=== PATIENT | female | born 1985 | race Caucasian/White ===

== ENCOUNTER 2020-10-28 15:44 | Inpatient (IN) | payer BC ==
[2020-10-28 16:19] VITALS: BMI 48.5
[2020-10-28] MEDS ORDERED: Ondansetron PF 4 MG/2 ML Vial IVP PRN (16:38)
[2020-10-28] MEDS ORDERED: hydrALAZINE 20 MG/ML VIAL SLOW IVP PRN (16:38)
[2020-10-28] MEDS ORDERED: Calcium Gluc 4.6 MEQ/10 ML (100 MG/ML) SLOW IVP PRN (16:38)
[2020-10-28] MEDS ORDERED: Butorphanol Tartrate 1 MG/ML VIAL SLOW IVP PRN (16:38)
[2020-10-28] MEDS ORDERED: Magnesium Sulfate 20 GM/WATER 500 ML BAG IVPB SCH (16:45)
[2020-10-28 17:39] LABS: Hemoglobin 12.9 g/dL (12.0-16.0); Mean Corpuscular HGB CONC 32.9 g/dL (32.0-36.0); Mean Corpuscular Hemoglobin 30.4 pg (27.0-31.0); Mean Corpuscular Volume 92.5 fL (78.0-98.0); Platelet Count 277 thou/uL (130-400); RBC Distribution Width 12.4 % (11.5-14.5); Red Blood Cell (RBC) Count 4.23 mill/uL (4.20-5.40); White Blood Cell (WBC) Count 12.5 thou/uL (4.8-10.8)
[2020-10-28 18:19] LABS: Syphilis Antibody Nonreactive (Nonreactive); Syphilis Antibody Index 0.04 S/CO (<1.00 Non-Reactive)
[2020-10-28 18:20] LABS: Hep B Surf Ag Non-Reactive S/CO (NonReactive)
[2020-10-28] MEDS: Fioricet 325/50/40 mg Tablet PO PRN (18:24)
[2020-10-28 18:25] LABS: ALT (SGPT) 12 U/L (8-55); AST (SGOT) 15 U/L (5-34); Albumin 3.3 g/dL (3.5-5.0); Alkaline Phosphatase 114 U/L (40-110); Anion Gap 14 mmol/L (10-20); BUN (Urea Nitrogen) 4 mg/dL (7.0-18.7); Bilirubin, Total 0.3 mg/dL (0.2-1.2); Calc. Creatinine Clearance 269 mL/min (70-130); Calcium 8.9 mg/dL (7.8-10.44); Carbon Dioxide 25 mmol/L (22-29); Chloride 103 mmol/L (98-107); Globulin 2.7 g/dL (2.4-3.5); Glucose 75 mg/dL (70-105); Potassium 3.5 mmol/L (3.5-5.1); Sodium 138 mmol/L (136-145)
[2020-10-28] MEDS: NIFEdipine XL 30 MG TAB PO SCH (20:44)
[2020-10-28] MEDS: Betamet Acet/Betamet Na Ph 30 MG/5 ML VIAL IM SCH (20:44)
--- NOTE | 2020-10-28 20:59 | ULT ---
LIMITED OB ULTRASOUND: 10/28/20 PROVIDED CLINICAL HISTORY: Evaluate weight, presentation and amniotic fluid index. FINDINGS: A single viable intrauterine gestation is documented in vertex presentation with heart rate of 145 be ats per minute. The placenta is anteriorly located, without evidence for previa. Amniotic fluid index is 15.9. Estimated gestational age based on today's examination is 33 weeks, 6 days. Estimated feta l weight is 2164 +/- 320 grams. Cervical length was not assessed. IMPRESSION: Single live intrauterine gestation as described. POS: MADDI
[2020-10-29] MEDS: Fioricet 325/50/40 mg Tablet PO PRN ×3 (04:09→17:49)
[2020-10-29 04:20] LABS: SARS-CoV-2 PCR by NAA Not Detected (NotDetected)
[2020-10-29] MEDS: Magnesium Sulfate 20 gm/500 ml 20 GM/500 ML BAG IVPB SCH ×3 (04:53→23:16)
[2020-10-29] MEDS ORDERED: hydrALAZINE 20 MG/ML VIAL SLOW IVP PRN (07:08)
--- NOTE | 2020-10-29 07:31 | PRG ---
DATE OF SERVICE: 10/29/2020 PRIMARY OB: Dr. Angela Power. HISTORY OF PRESENT ILLNESS: The patient is a 35-year-old female admitted for gestational hypertension, severe in nature, on magnesium for seizure prophylaxis, Procardia XL 30 mg at bedtime for blood pressure control, and hydralazine p.r.n. for blood pressure control, and steroids for lung maturity. The patient slept fairly well overnight. She did require another dose of Fioricet and reports her headache has diminished since arrival, but is still present. Blood pressures since arrival have ranged from 130s to the 160s. She did require additional treatment with hydralazine overnight in addition to her Procardia XL. OBJECTIVE: VITAL SIGNS: Most current blood pressure is 161/89, heart rate of 100, temperature 98.4. Her blood pressures have ranged primarily in the 140s and 150s systolic. GENERAL: She appears to be in no acute distress. She is resting comfortably. HEART: Has regular rate and rhythm. LUNGS: Clear to auscultation bilaterally. EXTREMITIES: Difficult to elicit DTRs. heart tracing shows the fetus with a baseline in the one teens with moderate long-term variability, positive 15 x 15 accelerations. No contractions on the tocometer. Urine output has been averaging about 150 to 200 mL an hour. ASSESSMENT AND PLAN: The patient is a 35-year-old, G2, P0 female with an intrauterine at 33 weeks and 2 days with severe gestational hypertension on Procardia XL 30 mg at bedtime. She needed additional dose of hydralazine last night for blood pressure control and appears it needed again this morning as she has just spiked another severe range pressure. We will continue current course of management. Dr. Dhillon is the oncoming physician, who will continue her care. Anticipate delivery in the next week. Job ID: [id number]
[2020-10-29] MEDS: Lactated Ringer's 1,000 ML IV SCH ×2 (08:22→21:44)
--- NOTE | 2020-10-29 08:35 | HP ---
PRIMARY OB: Dr. Angela Power. CHIEF COMPLAINT: Elevated blood pressure and headache. HISTORY OF PRESENT ILLNESS: The patient is a 35-year-old G2, P0 female with an intrauterine at 33 weeks and 2 days, presenting to Labor and Delivery with elevated pressures at home in the 140s systolic. The patient has been asked for the last few weeks to check her blood pressures twice a day due to an elevation in the clinic. The patient reports that she has also had a headache for the last day or two. For the last 24 hours that is bandlike and she describes as a tension headache. She denies shortness of breath. She denies abdominal pain. She denies fever, chest pain, shortness of breath, nausea, vomiting, diarrhea, constipation, hip problems, knee problems, muscle weakness. She denies any new rashes. She denies vaginal bleeding, leakage of fluid, urinary urgency or frequency. PAST MEDICAL HISTORY: Chronic UTI, on suppression. PAST SURGICAL HISTORY: She has had a tonsillectomy. SOCIAL HISTORY: Denies drug, alcohol or tobacco use during the . ALLERGIES: MACROBID AND PENICILLIN. MEDICATIONS: Keflex at bedtime. OB LABS: Blood type is A positive. Antibody screen is negative. Hepatitis B surface antigen is nonreactive. HIV is negative. GC chlamydia is negative. She is rubella immune. HCV is negative. Cystic fibrosis is negative. Diabetes screen is 93. REVIEW OF SYSTEMS: Per HPI. PHYSICAL EXAMINATION: VITAL SIGNS: Blood pressure on arrival 160/94, heart rate of 90, respiratory rate of 18, saturating 98% on room air, temperature 98.5. GENERAL: She appears to be in no acute distress. She is alert, oriented, cooperative, and pleasant to interact with. HEAD: Normocephalic, atraumatic. LUNGS: Clear to auscultation bilaterally. HEART: Has regular rate and rhythm. ABDOMEN: Gravid and soft. She does report tenderness in the right upper quadrant with an equivocal Guillermo's sign. EXTREMITIES: Nontender. She does have some edema that is symmetrical. Her DTRs are difficult to elicit. CERVIX: heart tracing shows the fetus with a baseline in the 140s with moderate long-term variability, positive 15/15 accelerations, no contractions on the tocometer. LABORATORY DATA: White count is 12.5, hemoglobin is 12.9, hematocrit 39.1, RDW 12.4 and platelets of 277,000. Sodium of 138, potassium of 3.5, creatinine 0.58, glucose is 75, AST of 15, ALT of 12, albumin 3.3. Urine protein dip is negative. RPR is nonreactive. Hepatitis B surface antigen nonreactive. SARS-CoV2 is nondetected. Blood type is A positive. Antibody screen is negative. IMAGING: ultrasound shows a fetus in vertex presentation with a weight of 2164 g. JOHN of 15. Placenta is anterior. Over the course of her stay, patient has had intermittent severe range pressures. Blood pressures primarily are in the 140s and 150s with occasional 160, highest 164 systolic. ASSESSMENT AND PLAN: The patient is a 35-year-old, 2, para 0 female with an intrauterine at 33 weeks and a day, who is presenting with signs of gestational hypertension with severe features as evidenced by headache and severe range blood pressures. The patient has been given a dose of Fioricet with some relief, but not resolution. Given the severe pressures, we have instituted magnesium for seizure prophylaxis. I have also started her on Procardia XL 30 mg and steroids for lung maturity. Fetus is in vertex presentation. CoV2 is negative. We will continue magnesium through the steroid course and treat blood pressures as necessary. Job ID: [id number]
[2020-10-29] MEDS: Betamet Acet/Betamet Na Ph 30 MG/5 ML VIAL IM SCH (21:04)
[2020-10-29] MEDS: NIFEdipine XL 30 MG TAB PO SCH (21:04)
--- NOTE | 2020-10-30 07:46 | PDOC.BPN ---
- Brief Progress Note Encounter Date: 10/30/20 Encounter Time: 07:42 S: Continues to have a headache, although better after having coffee yesterday. She has not required a fioricet overnight. Otherwise without complaints. Denies VB, LOF, ctx, RUQ pain, vision changes, or decreased FM. O: BPs: 130s-150s with occasional 160s/70s-90s Gen - AAO, NAD Chest - nonlabored Abd - obese, soft, gravid, NTTP A/P: 35 y/o at 33w3d with GHTN and severe range BPs. Labs unremarkable, urine protein negative. On Procardia XL 30mg daily. MgSO4 was started yesterday. Now s/p betamethasone x 2. Will discuss with oncoming OBH and/or Dr. Power. May consider delivery if CORTES cannot be resolved now that she has received 2 doses of steroids.
[2020-10-30 10:07] LABS: Creatinine, Urine Less than 20.00 mg/dL (47-110); Protein, Urine Random Quant Less than 10 mg/dL (1-14)
[2020-10-30] MEDS: NIFEdipine XL 30 MG TAB PO SCH (21:43)
[2020-10-31] MEDS: Fioricet 325/50/40 mg Tablet PO PRN (05:46)
--- NOTE | 2020-10-31 06:54 | PDOC.EVN ---
Event Note - Event Note Event Note: S:Had headache this morning. Given fiorcet and feeling better. Baby is active. O:155/90....range 130-140/80-90..Procardia 30 mg xl started 10/30..PIH labs normal 10/28 Completed steroids. ABD: soft/non tender. A/P:35 y/o A1 at 33-34 weeks with gestational hypertension. Labs normal. Procardia initiated. Has h/o migraine with headache this AM that has improved with fiorcet. Continue to observe in house. If blood pressures persist in severe range or if symptoms continue, induce. Rechecheck labs today..
[2020-10-31 07:58] LABS: Hemoglobin 11.8 g/dL (12.0-16.0); Mean Corpuscular HGB CONC 33.9 g/dL (32.0-36.0); Mean Corpuscular Hemoglobin 32.2 pg (27.0-31.0); Mean Corpuscular Volume 94.8 fL (78.0-98.0); Mean Platelet Volume 6.7 fL (7.4-10.4); Platelet Count 256 thou/uL (130-400); RBC Distribution Width 12.4 % (11.5-14.5); Red Blood Cell (RBC) Count 3.66 mill/uL (4.20-5.40); White Blood Cell (WBC) Count 12.3 thou/uL (4.8-10.8)
[2020-10-31 08:23] LABS: ALT (SGPT) 13 U/L (8-55); AST (SGOT) 13 U/L (5-34); Alkaline Phosphatase 97 U/L (40-110); Anion Gap 12 mmol/L (10-20); BUN (Urea Nitrogen) 4 mg/dL (7.0-18.7); Bilirubin, Total 0.2 mg/dL (0.2-1.2); Calc. Creatinine Clearance 284 mL/min (70-130); Calcium 8.2 mg/dL (7.8-10.44); Carbon Dioxide 26 mmol/L (22-29); Chloride 104 mmol/L (98-107); Globulin 2.7 g/dL (2.4-3.5); Glucose 88 mg/dL (70-105); Protein, Total 5.7 g/dL (6.0-8.3); Sodium 139 mmol/L (136-145)
[2020-10-31] MEDS: NIFEdipine XL 30 MG TAB PO SCH (20:49)
[2020-10-31 23:53] VITALS: TEMP 98
[2020-11-01] MEDS: Fioricet 325/50/40 mg Tablet PO PRN (05:00)
[2020-11-01 07:58] VITALS: BP 111/75
--- NOTE | 2020-11-01 09:14 | DIS ---
DATE OF ADMISSION: 10/28/2020 DATE OF DISCHARGE: 11/01/2020 DIAGNOSES: 1. 33 or 34 weeks gestational hypertension. 2. Advanced maternal age. SUMMARY OF HOSPITAL COURSE: Ms. Kline is a G1, P0, who is at 33 or 34 weeks, who has had some mild gestational hypertension issues started several weeks ago. She has taken a baby aspirin 81 mg daily and been checking her blood pressures routinely daily. She was noted to have pressures in 140s systolic at home with a continued bandlike headache that caused her to present to the emergency room in Labor and Delivery for evaluation. On exam, initially, she had elevated blood pressure at 160/94, which had persisted. She underwent laboratory assessment for PIH and all her platelets, creatinine, and liver function testing were normal. She did receive some hydralazine for hypertension which improved, but she was also placed on IV magnesium. She was evaluated and observed in Labor and Delivery over 24 hours and did receive 2 courses of betamethasone for lung maturation. Essentially, her blood pressures improved and were less than severe criteria. Protein in the urine was negligible. heart rate tracing on continuous monitoring was all reassuring. An ultrasound that was performed on 10/28 showing her to have an estimated gestational age of 33 weeks six days with weight 2164 with no obvious abnormalities noted and normal amniotic fluid index of 15.9. Since she stabilized with her blood pressures being in the nonsevere range, she was transferred to the floor after she was started on Procardia 30 mg XL daily. She has been observed now approximately 2 days from this transfer from and D. Overall, her blood pressures have remained normotensive with the Procardia ranging anywhere from normal diastolics of 75 to 83. She did have an occasional morning headache that has resolved with Fioricet. She reports an active fetus and no current PIH symptoms. Blood pressure currently is 111/75. heart tones are in the 140s. So, plan is to discharge her home with modified bed rest. She is to continue Procardia 30 mg XL daily. Prescription also Fioricet for headaches will be given. She has instructions to check her blood pressure four times a day and if they begin running systolics consistently in the 150 or diastolics in the high 90s to 100, she should back to the emergency room. She is also instructed if her headache does not resolve after using the Fioricet, she should also return back to the ER. She has a followup in 2 days in my office for OB followup. Job ID: [id number]
== END 2020-11-01 11:03 | disposition home or self-care (01) | DRG 833 ==
LOC: L&D/OP 15:44 → L&D 16:38 → OBSVTOIN 21:29 → 3SE 10-30 19:56
PROVIDERS: ADMIT Obstetrics & Gynecology; ATTEND Obstetrics & Gynecology
DX: O13.3 Gestational [pregnancy-induced] hypertension without significant proteinuria, third trimester (principal); Z3A.33 33 weeks gestation of pregnancy; Z20.822 Contact with and (suspected) exposure to COVID-19; Z87.440 Personal history of urinary (tract) infections; O99.213 Obesity complicating pregnancy, third trimester; E66.9 Obesity, unspecified; G43.909 Migraine, unspecified, not intractable, without status migrainosus; O99.353 Diseases of the nervous system complicating pregnancy, third trimester
CPT/HCPCS: 36415; 51702; 59025; 76815; 80053; 81003; 82570; 84156; 85027; 86780; 86850; 86900; 86901; 87340; 87635; 99285; G0378; J0360; J0702; J3475; U0003; U0005

== ENCOUNTER 2021-03-14 10:25 | Emergency (ER) | payer OTHER ==
[2021-03-14] MEDS ORDERED: Ketorolac Tromethamine 30 MG/ML VIAL ONE (11:22)
[2021-03-14] MEDS ORDERED: HYDROcodone/Acetaminophen 5/325 mg Tablet ONE (11:22)
== END 2021-03-14 11:55 | disposition home or self-care (01) ==
LOC: ERS 10:25
DX: M23.92 Unspecified internal derangement of left knee (principal); W01.0XXA Fall on same level from slipping, tripping and stumbling without subsequent striking against object, initial encounter
CPT/HCPCS: 96374; J1885

== ENCOUNTER 2021-03-29 10:31 | Outpatient (CLI) | payer BC | END 2021-03-29 10:32 | disposition home or self-care (01) | LOC: TBSIIMAG 10:31 | PROVIDERS: ATTEND Family Medicine | DX: S89.92XD Unspecified injury of left lower leg, subsequent encounter (principal); S83.005S Unspecified dislocation of left patella, sequela; S80.02XD Contusion of left knee, subsequent encounter; M25.462 Effusion, left knee ==